=== PATIENT | male | born 1950 | race Caucasian/White ===

== ENCOUNTER → 2016-05-29 | Outpatient (CLI) | payer OTHER | LOC: MMPC 11:11 | PROVIDERS: ATTEND Internal Medicine | DX: Z23 Encounter for immunization (principal) | CPT/HCPCS: 90670 ==

== ENCOUNTER 2016-06-13 13:45 | Emergency (ER) | payer OTHER ==
--- NOTE | 2016-06-13 14:31 | PDOC ---
Chest Pain HPI - General Chief Complaint: Chest Pain Stated Complaint: CHEST PAIN Date Seen by Provider: 06/13/16 Time Seen by Provider: 14:26 Source: Patient Exam Limitations: POSITIVE: No limitations Treatment Prior to Arrival: REPORTS: None Nurse's Notes Reviewed & Considered: Yes - History of Present Illness Initial Comments: This is a 66-year-old male who presents to the emergency department by private vehicle with a history of intermittent substernal and left-sided chest pain for the last 12 days or so. He states he received Prevnar vaccine 2 weeks ago, and then decided to work out the next 2 days after the vaccine, including treadmill work and using a weight bench. He states the chest pain and left shoulder pain started that time. The pain does seem to be exacerbated particularly with lifting weights, but he has no other associated complaints. Specifically, no shortness of breath, nausea, vomiting, diaphoresis. No shortness of breath. He describes the pain as a pulling/pushing type feeling which is substernal and left-sided in location. - Patient Home Medications Home Medications: Home Medications Amlodipine Besylate 1 tab-cap PO DAILY #90 tab 11/03/15 Atorvastatin Calcium 1 tab PO DAILY #90 tab 11/03/15 Benazepril HCl 1 tab-cap PO DAILY #90 tab 11/03/15 Metoprolol Succinate 1 tab PO DAILY #90 tab 11/03/15 Furosemide [Lasix] 1 tab-cap ORAL BID #180 tab 01/12/16 Potassium Chloride 1 tab-cap ORAL BID #180 capsule 01/24/16 Levothyroxine Sodium [Synthroid] 1 tab-cap PO QD #90 tab-cap 02/09/16 Metformin HCl 1 tab-cap PO QD #90 tab 04/06/16 Blood Sugar Diagnostic [Freestyle Lite Strips] 1 each IN QD #100 strip 05/03/16 Blood-Glucose Meter [Freestyle Lite Meter] 1 each MC QD #1 each 05/03/16 Lancets [Freestyle Lancets] 1 each TOPICAL QD #200 each 05/03/16 Aspirin 325 mg PO DAILY 06/13/16 Ibuprofen 600 mg PO TID PRN 06/13/16 - Patient Allergies Allergies/Adverse Reactions: Allergies Allergy/AdvReac Type Severity Reaction Status Date / Time Penicillins Allergy edema Verified 06/13/16 14:29 Past Medical History - heen HEENT History: Denies History, Tinnitis Cardiovascular History: Hypertension, CAD, Hyperlipidemia Additional Cardiovasular History: 6 VESSEL BYPASS Respiratory History: Snoring Gastrointestinal History: GERD Genitourinary History: Denies History Endocrine History: Hypothyroidism Musculoskeletal History: Arthritis Neurological History: Denies History Blood Disorders: Denies History Psychiatric History: Denies History Cancer History: Denies History History of MDRO: Unknown Tobacco Use: Never Smoker Alcohol Use: Rarely Substance Use Type: None Previous Surgical History: Yes Type / Date of Surgery: SIX WAY BYPASS IN 2006/ COLONOSCOPY/ T&A/ RIGHT KNEE SCOPE Anesthesia Reactions: No Malignant Hyperthermia: No Past Medical History Reviewed: Reviewed - No Changes ROS - Limitations ROS Limitations: No Limitations Constitution: DENIES: Chills, Fever Cardiovascular: REPORTS: Chest Pain, Edema (No change in chronic mild edema). DENIES: Heart Palpitations Respiratory: REPORTS: Denies Resp Symptoms Neurological: DENIES: Dizziness, Fainting Gastrointestinal: DENIES: Abdominal Pain, Nausea, Vomitting Musculoskeletal: REPORTS: Muscle Aches Eyes: DENIES: Vision Changes ENT: DENIES: Congestion, Nasal Drainage Skin: DENIES: Rash Chest Pain PE - General Appearance General Appearance: REPORTS: Alert, Cooperative, No Acute Distress - HEENT HEENT: POSITIVE: Head Inspection Nml, Eyes Inspection Nml, Ears Inspection Nml, Nose Inspection Nml, PERRL. NEGATIVE: Scleral Icterus - Neck Neck: REPORTS: Normal Inspection - Respiratory Respiratory: REPORTS: No Respiratory Distress. DENIES: Wheezes, Rales, Rhonchi - Cardiovascular Cardiovascular: REPORTS: Regular Rate and Rhythm, Heart Sounds Normal, No Murmur - Abdomen Additional Abdominal Details: Abdomen is soft, nontender, nondistended, no hepatosplenomegaly. - Skin Skin: REPORTS: Warm, Dry, No Rash - Neurological / Psychological Neurological: POSITIVE: Affect Apporpriate, Oriented X3, Motor Normal Chest Pain Progress - Results Reviewed by me Lab Results:: Laboratory Results 06/13/16 Range/Units 14:57 WBC 8.06 (4.8-10.8) 10^3/uL RBC 5.53 (4.70-6.10) 10^6/uL Hgb 16.1 (14.0-18.0) g/dL Hct 46.9 (42.0-52.0) % MCV 84.8 (80-90) FL MCH 29.1 (27-31) PG MCHC 34.3 (33-37) g/dL RDW Std Deviation 44.1 (39-50) fL RDW Coeff of Pee 14.4 (11.5-14.5) % Plt Count 310 (140-350) 10*3/uL MPV 9.5 (7.4-12.2) FL Immature Gran % (Auto) 0.2 (0-5) % Neut % (Auto) 51.2 (50-80) % Lymph % (Auto) 34.6 (10-50) % [place] % (Auto) 8.6 (5-15) % Eos % (Auto) 4.3 (0-8) % Baso % (Auto) 1.1 H (0-1) % Immature Gran # (Auto) 0.02 10*3/UL Neut # (Auto) 4.12 10*3/UL Lymph # (Auto) 2.79 10*3/uL [place] # (Auto) 0.69 (0.3-0.8) 10*3/UL Eos # (Auto) 0.35 10*3/UL Baso # (Auto) 0.09 10*3/UL WBC Morphology Comment Normal morphology (NORM) Plt Morphology Comment Normal morphology (NORM) RBC Morph Comment Normal morphology (NORM) D-Dimer 0.30 (0.00-0.59) mg/L Sodium 140 (135-145) meq/L Potassium 4.2 (3.8-5.2) meq/L Chloride 102 (98-112) meq/L Carbon Dioxide 24 (23-33) meq/L Anion Gap 14 (5-20) BUN 15 (7-22) mg/dL Creatinine 0.8 (0.70-1.50) mg/dL Estimated GFR > 60 (>60 ml/min/1.73m(2)) BUN/Creatinine Ratio 18.75 (6-20) Glucose 95 (78-110) mg/dL Calculated Osmolality 290.0 (267-292) mOsm/kg Calcium 10.0 (8.7-10.7) mg/dL Total Bilirubin 0.8 (0.3-1.2) mg/dL AST 31 (21-57) IU/L ALT 37 (21-72) IU/L Alkaline Phosphatase 113 (38-126) IU/L CK-MB (CK-2) 1.78 (0.00-5.00) NG/DL Troponin I < 0.012 (< 0.040) ng/mL Total Protein 8.1 H (6.1-8.0) g/dL Albumin 4.8 (3.5-4.8) g/dL Globulin 3.3 (2.50-4.10) g/dL Albumin/Globulin Ratio 1.40 (1.3-2.0) mg/g EKG Interpretation:: POSITIVE: Normal Sinus Rhythm, Normal Rate, Normal Intervals, Normal [place], Normal QRS, Normal ST/T - Patient's Progress Pain Medication Addressed: POSITIVE: Not Applicable Re-Examine Time: 15:27 (minimal improvement after nitroglycerin) Re-Examine Time:: 16:04 (no change, patient feels good.) MDM / ED Course: After initial evaluation, the patient had an IV started, labs were drawn, EKG done, and chest x-ray was reviewed from earlier today. Labs reviewed and documented in the chart, troponin was negative, d-dimer normal. Chest x-ray from earlier in the day showed no acute pathology, just thoracic scoliosis scoliosis and degenerative changes in his spine. He was otherwise asymptomatic throughout his emergency room stay. Further discussion with him after I reviewed his labs and discussed those with him, revealed that he is still able to walk on his treadmill 30 minutes at a time several times a week these last 2 weeks without triggering any chest pain. Exercise tolerance is unchanged. Due to this, I believe that his chest pain is noncardiac in nature at this time. I did suggest that he follow-up with Dr. Lopez and have his cardiac stress test scheduled in the near future, since it has been several years since his previous test. Return to the emergency department if chest pain gets worse. Quality Measure Initiative: CP/AMI: POSITIVE: EKG, ASA Patient Care Time - Estimated PCT Patient Care Time (In Minutes): 30 Discharge Clinical Impression: Chest pain Discharge Disposition: Discharged to Home Condition: Good Patient Instructions Given at Discharge: Chest Pain (ED)
[2016-06-13] MEDS ORDERED: NORMAL SALINE 10 ML SYRINGE FLUSH IVP PRN (14:32)
[2016-06-13] MEDS ORDERED: ASPIRIN 81 MG (BABY) CHEWABLE TABLET PO ONE (14:32)
[2016-06-13] MEDS: NITROGLYCERIN 0.4 MG SL TAB (BOTTLE OF 3) SL PRN ×2 (14:55→15:09)
[2016-06-13 15:10] LABS: ASPARTATE AMINO TRANSFERASE 31 IU/L (21-57); BILIRUBIN,TOTAL 0.8 mg/dL (0.3-1.2); BLOOD UREA NITROGEN 15 mg/dL (7-22); BUN/CREATININE RATIO 18.75 (6-20); CHLORIDE 102 meq/L (98-112); CREATININE 0.8 mg/dL (0.70-1.50); EST GLOMERULAR FILTRATION > 60 (>60 ml/min/1.73m(2)); GLUCOSE 95 mg/dL (78-110); POTASSIUM 4.2 meq/L (3.8-5.2); SODIUM 140 meq/L (135-145); TOTAL PROTEIN 8.1 g/dL (6.1-8.0)
[2016-06-13 15:11] LABS: BASOPHILS # (AUTO) 0.09 10*3/UL; BASOPHILS % (AUTO) 1.1 % (0-1); EOSINOPHILS % (AUTO) 4.3 % (0-8); HEMATOCRIT 46.9 % (42.0-52.0); HEMOGLOBIN 16.1 g/dL (14.0-18.0); IMM GRAN % (AUTO) 0.2 % (0-5); IMM GRAN# (AUTO) 0.02 10*3/UL; LYMPHOCYTES # (AUTO) 2.79 10*3/uL; LYMPHOCYTES % (AUTO) 34.6 % (10-50); MEAN CORPUSCULAR HEMOGLOBIN 29.1 PG (27-31); MEAN CORPUSCULAR HGB CONC 34.3 g/dL (33-37); MEAN PLATELET VOLUME 9.5 FL (7.4-12.2); MONOCYTES # (AUTO) 0.69 10*3/UL (0.3-0.8); MONOCYTES % (AUTO) 8.6 % (5-15); NEUTROPHILS # (AUTO) 4.12 10*3/UL; NEUTROPHILS % (AUTO) 51.2 % (50-80); RDW COEFFICIENT OF VARIATION 14.4 % (11.5-14.5); RED BLOOD COUNT 5.53 10^6/uL (4.70-6.10); WHITE BLOOD COUNT 8.06 10^3/uL (4.8-10.8)
[2016-06-13 15:13] LABS: PLATELET MORPHOLOGY COMMENT NORMAL MORPHOLOGY (NORM)
[2016-06-13 15:22] LABS: CREATINE KINASE MB 1.78 NG/DL (0.00-5.00)
[2016-06-13 15:35] LABS: TROPONIN I < 0.012 ng/mL (< 0.040)
[2016-06-13 16:05] VITALS: RESP 19; TEMP 96.8
--- NOTE | 2016-06-13 17:20 | EKG ---
[address] [address] Measurements Intervals [place] Rate: 63 P: 46 MS: 172 QRS: 31 QRSD: 93 T: 21 QT: 406 QTc: 413 Interpretive Statements SINUS RHYTHM Compared to ECG 02/13/2015 02:22:33 Sinus bradycardia no longer present Electronically Signed On 06-14-16 09:37:16 MST by Florentino Rubin [email or web address]
== END 2016-06-13 16:15 | disposition home or self-care (01) ==
LOC: ER 13:45
DX: R07.9 Chest pain, unspecified (principal); I25.810 Atherosclerosis of coronary artery bypass graft(s) without angina pectoris
CPT/HCPCS: 36415; 72070; 80053; 82306; 82553; 83036; 84484; 85025; 85379; 93005; 93010; 99283

== ENCOUNTER → 2016-06-13 | Outpatient (CLI) | payer OTHER ==
[2016-06-13 13:40] LABS: HEMOGLOBIN A1C 7.06 % (4.2-6.0); MEAN BLOOD GLUCOSE (CALC) 149.098 mg/dL
--- NOTE | 2016-06-13 22:44 | DI ---
THORACIC SPINE SERIES, 06/13/2016 1:14 PM: Clinical History: Age-related osteoporosis without current pathological fracture. Previous Exam: None at this facility. 2 views are submitted. The vertebral bodies are of normal height and size with normal disc spaces. Th ere is dextroscoliosis of the midthoracic spine. Bony spurring is present bilaterally and anteriorly at the disc spaces throughout almost the entire spine. Pedicles and posterior elements are normal. Th ere are no paravertebral masses. There is osteoporosis. The patient is status post CABG. Readin. Mid thoracic dextroscoliosis. Osteoporosis. 2. The exam is otherwise unremarkable.
== END ==
LOC: RAD 13:08
PROVIDERS: ATTEND Internal Medicine
DX: M81.0 Age-related osteoporosis without current pathological fracture (principal); E11.65 Type 2 diabetes mellitus with hyperglycemia
CPT/HCPCS: 36415; 72070; 82306; 83036

== ENCOUNTER → 2016-07-20 | Outpatient (CLI) | payer OTHER | LOC: MMPC 09:30 | PROVIDERS: ATTEND Internal Medicine | DX: E11.9 Type 2 diabetes mellitus without complications (principal); E66.9 Obesity, unspecified; E03.9 Hypothyroidism, unspecified; Z95.1 Presence of aortocoronary bypass graft; Z71.3 Dietary counseling and surveillance | CPT/HCPCS: G0108 ==

== ENCOUNTER → 2016-08-01 | Outpatient (CLI) | payer OTHER | LOC: MMPC 11:11 | PROVIDERS: ATTEND Internal Medicine | DX: E11.65 Type 2 diabetes mellitus with hyperglycemia (principal); I10 Essential (primary) hypertension; M51.36 Other intervertebral disc degeneration, lumbar region; Z95.1 Presence of aortocoronary bypass graft; E03.9 Hypothyroidism, unspecified; R39.11 Hesitancy of micturition; M85.851 Other specified disorders of bone density and structure, right thigh; M85.852 Other specified disorders of bone density and structure, left thigh; M81.0 Age-related osteoporosis without current pathological fracture; R60.9 Edema, unspecified | CPT/HCPCS: 99213; G0463 ==

== ENCOUNTER → 2016-12-05 | Outpatient (CLI) | payer OTHER ==
[2016-12-05 17:16] LABS: HEMOGLOBIN A1C 6.35 % (4.2-6.0)
[2016-12-05 17:26] LABS: BLOOD UREA NITROGEN 18 mg/dL (7-22); CALCIUM 9.6 mg/dL (8.7-10.7); EST GLOMERULAR FILTRATION > 60 (>60 ml/min/1.73m(2))
== END ==
LOC: MOB LAB 15:59
PROVIDERS: ATTEND Internal Medicine
DX: E11.65 Type 2 diabetes mellitus with hyperglycemia (principal); I10 Essential (primary) hypertension
CPT/HCPCS: 36415; 80048; 83036

== ENCOUNTER → 2017-01-03 | Outpatient (CLI) | payer OTHER | LOC: MMPC 10:00 | PROVIDERS: ATTEND Podiatrist Foot & Ankle Surgery | DX: M79.671 Pain in right foot (principal); M79.672 Pain in left foot; R29.898 Other symptoms and signs involving the musculoskeletal system; M24.575 Contracture, left foot; M20.5X2 Other deformities of toe(s) (acquired), left foot; M24.574 Contracture, right foot; M20.5X1 Other deformities of toe(s) (acquired), right foot; E11.65 Type 2 diabetes mellitus with hyperglycemia | CPT/HCPCS: 99203; G0463 ==